=== PATIENT | male | born 2000 | race Caucasian/White ===

== ENCOUNTER 2018-11-18 09:45 | Emergency (ER) | payer SELFPAY ==
--- NOTE | 2018-11-18 10:38 | EDM.PDOC ---
ED HPI GENERAL MEDICAL PROBLEM - General Chief Complaint: Eye Problems Stated Complaint: EYE REDNESS Time Seen by Provider: 11/18/18 10:18 Source of Information: Reports: Patient, RN Notes Reviewed - History of Present Illness INITIAL COMMENTS - FREE TEXT/NARRATIVE: 18-year-old male comes in with left eye inflammation. This started 2 days ago and has continued. There has been some crusting and mattering of the eye, especially in the morning. His not aware of getting anything into the eye or any acute injury that he was aware of. He does wear contacts occasionally but has not been wearing contacts this past week. He works at a [employer] so would not be at high risk of injury or getting anything into the eye. - Related Data Allergies Allergy/AdvReac Type Severity Reaction Status Date / Time amoxicillin Allergy Rash Verified 11/18/18 09:58 Home Meds: Home Meds Ascorbic Acid [Vitamin C] 1 tab PO DAILY 11/18/18 [History] Cholecalciferol (Vitamin D3) [Vitamin D] 1 tab PO DAILY 11/18/18 [History] Folic Acid 1 tab PO DAILY 11/18/18 [History] Methotrexate 1 tab PO WEEKLY 11/18/18 [History] Remicade. 1 tab PO DAILY 11/18/18 [History] Past Medical History Gastrointestinal History: Reports: Other (See Below) Other Gastrointestinal History: Crohn's disease - Past Surgical History GI Surgical History: Reports: Colon, Colostomy Other GI Surgeries/Procedures: temporary colostomy, colostomy reversal Social & Family History - Tobacco Use Years of Tobacco use: 2 - Caffeine Use Caffeine Use: Reports: None - Recreational Drug Use Recreational Drug Use: No ED ROS GENERAL - Review of Systems Review Of Systems: See Below Constitutional: Denies: Fever, Chills HEENT: Reports: Eye Discharge (There has been some mild mattering and crusting, especially in the morning), Eye Pain Respiratory: Denies: Shortness of Breath, Cough Cardiovascular: Denies: Chest Pain GI/Abdominal: Denies: Abdominal Pain, Vomiting Skin: Denies: Rash Neurological: Denies: Headache ED EXAM GENERAL W FULL EYE - Physical Exam Exam: See Below General Appearance: Alert, Mild Distress Eye Exam: Bilateral Eye: Conjunctival Injection (Right eye is normal), PERRL Conjunctiva & Sclera: Bilateral: Injected Cornea Exam: Bilateral: Normal Appearance Nose: Normal Inspection Throat/Mouth: Normal Inspection Neck: Supple Respiratory/Chest: No Respiratory Distress Course - Vital Signs Last Recorded V/S: Last Vital Signs Temp 98.2 F 11/18/18 09:56 Pulse 68 11/18/18 09:56 Resp 16 11/18/18 09:56 BP 129/80 11/18/18 09:56 Pulse Ox 100 11/18/18 09:56 - Re-Assessments/Exams Free Text/Narrative Re-Assessment/Exam: 11/18/18 10:51 Slit-lamp exam was done I do not see any evidence for foreign body or abrasion. Of note at time of initial exam very small amount of exudate seen left lower lid margin. No evidence of traumatic injury. This does appear to be a conjunctival infection, will start him on erythromycin ointment 3 times daily. Departure - Departure Time of Disposition: 10:33 Disposition: Home, Self-Care 01 Condition: Fair Clinical Impression: Conjunctivitis Qualifiers: Conjunctivitis type: acute Acute conjunctivitis type: bacterial Laterality: left Qualified Code(s): H10.32 - Unspecified acute conjunctivitis, left eye - Discharge Information Instructions: Bacterial Conjunctivitis, [id number] Referrals: Sánchez Puentes MD [Primary Care Provider] - Forms: ED Department Discharge, ED Return to Work/School Form Additional Instructions: Warm compresses every 3 to 4 hours while awake today and tomorrow. Erythromycin antibiotic ointment 3 times daily L eye. Follow up with your regular eye doctor if not better by Tuesday, this may take 5 to 7 days to totally get back to normal. Tylenol or ibuprofen if needed for discomfort.
== END 2018-11-18 10:45 | disposition home or self-care (01) ==
LOC: JD.ED 09:45
DX: H10.32 Unspecified acute conjunctivitis, left eye (principal); Z88.1 Allergy status to other antibiotic agents; Z79.899 Other long term (current) drug therapy
CPT/HCPCS: 99282

== ENCOUNTER 2020-05-12 09:34 | Emergency (ER) | payer BC ==
--- NOTE | 2020-05-12 10:23 | EDM.PDOC ---
ED HPI GENERAL MEDICAL PROBLEM - General Chief Complaint: General Stated Complaint: NO TASTE/HAS CROHNS DISEASE Time Seen by Provider: 05/12/20 10:04 Source of Information: Reports: Patient History Limitations: Reports: No Limitations - History of Present Illness INITIAL COMMENTS - FREE TEXT/NARRATIVE: The patient presents with loss of taste and smell. He woke up with this. He has no other symptoms or signs such as fever, chills, cough, congestion, headache, shortness of breath, chest pain, abdominal pain, nausea, vomiting or diarrhea. His roommates girlfriend does not feel well and she is waiting for a COVID 19 test. The patient has a history of Crohn's disease and he is on methotrexate and remicade. Onset: Gradual Duration: Hour(s): Severity: Mild Improves with: Reports: None Worsens with: Reports: None Associated Symptoms: Reports: No Other Symptoms - Related Data Allergies Allergy/AdvReac Type Severity Reaction Status Date / Time amoxicillin Allergy Rash Verified 05/12/20 10:04 Home Meds: Home Meds Ascorbic Acid [Vitamin C] 1 tab PO DAILY 11/18/18 [History] Cholecalciferol (Vitamin D3) [Vitamin D] 1 tab PO DAILY 11/18/18 [History] Folic Acid 1 tab PO DAILY 11/18/18 [History] Methotrexate 1 tab PO WEEKLY 11/18/18 [History] Remicade. 1 tab PO ASDIRECTED 11/18/18 [History] Past Medical History Gastrointestinal History: Reports: Other (See Below) Other Gastrointestinal History: Crohn's disease - Past Surgical History GI Surgical History: Reports: Colon, Colostomy Other GI Surgeries/Procedures: temporary colostomy, colostomy reversal Social & Family History - Family History Family Medical History: Noncontributory - Tobacco Use Tobacco Use Status *Q: Light Tobacco User Years of Tobacco use: 3 Packs/Tins Daily: 0.1 - Caffeine Use Caffeine Use: Reports: Coffee, Energy Drinks - Recreational Drug Use Recreational Drug Use: No ED ROS GENERAL - Review of Systems Review Of Systems: See Below Constitutional: Reports: No Symptoms HEENT: Reports: Other (Loss of taste and smell) Respiratory: Reports: No Symptoms Cardiovascular: Reports: No Symptoms Endocrine: Reports: No Symptoms GI/Abdominal: Reports: No Symptoms : Reports: No Symptoms Musculoskeletal: Reports: No Symptoms ED EXAM, GENERAL - Physical Exam Exam: See Below Exam Limited By: No Limitations General Appearance: Alert, No Apparent Distress Ears: Normal External Exam Nose: Normal Inspection Head: Atraumatic, Normocephalic Neck: Normal Inspection Respiratory/Chest: No Respiratory Distress, Lungs Clear, Normal Breath Sounds Cardiovascular: Regular Rate, Rhythm, No Edema, No Murmur GI/Abdominal: Soft, Non-Tender, No Organomegaly, No Mass Back Exam: Normal Inspection Extremities: Normal Inspection Neurological: Alert, Oriented, No Motor/Sensory Deficits Course - Vital Signs Last Recorded V/S: Last Vital Signs Temp 97.8 F 05/12/20 10:00 Pulse 86 05/12/20 10:00 Resp 17 05/12/20 10:00 BP 155/91 H 05/12/20 10:00 Pulse Ox 100 05/12/20 10:00 - Orders/Labs/Meds Orders: Active Orders 24 hr Category Date Time Status CORONAVIRUS COVID-19 PCR [facility] Stat Lab 05/12/20 10:17 Ordered - Re-Assessments/Exams Free Text/Narrative Re-Assessment/Exam: 05/12/20 10:21 I have ordered a COVID 19 test. Departure - Departure Time of Disposition: 10:25 Disposition: Home, Self-Care 01 Condition: Good Clinical Impression: Loss of smell, Loss of taste - Discharge Information *PRESCRIPTION DRUG MONITORING PROGRAM REVIEWED*: Not Applicable *COPY OF PRESCRIPTION DRUG MONITORING REPORT IN PATIENT ZULEMA: Not Applicable Referrals: Sánchez Puentes MD [Primary Care Provider] - Forms: ED Department Discharge, ED Return to Work/School Form Additional Instructions: Take your medication as prescribed. Quarantine until you get the results. Please return if you are worse like any shortness of breath. Sepsis Event Note (ED) - Evaluation Sepsis Screening Result: No Definite Risk - Focused Exam Vital Signs: Vital Signs Temp Pulse Resp BP Pulse Ox 05/12/20 10:00 97.8 F 86 17 155/91 H 100 - My Orders Last 24 Hours: My Active Orders 05/12/20 10:17 CORONAVIRUS COVID-19 PCR [facility] Stat - Assessment/Plan Last 24 Hours: My Active Orders 05/12/20 10:17 CORONAVIRUS COVID-19 PCR [facility] Stat
== END 2020-05-12 10:45 | disposition home or self-care (01) ==
LOC: JD.ED 09:34
DX: R43.8 Other disturbances of smell and taste (principal); U07.1 COVID-19; F17.210 Nicotine dependence, cigarettes, uncomplicated; Z79.899 Other long term (current) drug therapy; Z88.1 Allergy status to other antibiotic agents
CPT/HCPCS: 99282; 99283; U0002

== ENCOUNTER 2020-08-08 19:40 | Emergency (ER) | payer BC ==
--- NOTE | 2020-08-08 20:19 | EDM.PDOC ---
ED HPI GENERAL MEDICAL PROBLEM - General Chief Complaint: Skin Complaint Stated Complaint: rash Time Seen by Provider: 08/08/20 20:03 Source of Information: Reports: Patient History Limitations: Reports: No Limitations - History of Present Illness INITIAL COMMENTS - FREE TEXT/NARRATIVE: This is a 20-year-old male. Onset yesterday with some rash on his lower legs and on his upper arms. It is itchy. He has been taking some allergy medication but is not helping. He comes to the clinic ER for evaluation. He denies any fever or chills he denies any other acute symptoms. He states it seems like it is spreading on his arms and getting worse. He has no history of allergies except to some amoxicillin. But he does not have any environmental or food allergies that he is aware of. Treatments KNOCKER OUT: Reports: Other Medication(s) Other Treatments KNOCKER OUT: generic allergy medication - Related Data Allergies Allergy/AdvReac Type Severity Reaction Status Date / Time amoxicillin Allergy Rash Verified 08/08/20 20:03 Home Meds: Home Meds Ascorbic Acid [Vitamin C] 1 tab PO DAILY 11/18/18 [History] Cholecalciferol (Vitamin D3) [Vitamin D] 1 tab PO DAILY 11/18/18 [History] Folic Acid 1 tab PO DAILY 11/18/18 [History] Methotrexate 1 tab PO WEEKLY 11/18/18 [History] Remicade. 1 tab PO ASDIRECTED 11/18/18 [History] Doxycycline [Vibra-Tabs] 100 mg PO BID #14 tab 08/08/20 [Rx] Past Medical History Gastrointestinal History: Reports: Other (See Below) Other Gastrointestinal History: Crohn's disease - Past Surgical History GI Surgical History: Reports: Colon, Colostomy Other GI Surgeries/Procedures: temporary colostomy, colostomy reversal Social & Family History - Family History Family Medical History: No Pertinent Family History - Tobacco Use Tobacco Use Status *Q: Current Every Day Tobacco User Years of Tobacco use: 1 Packs/Tins Daily: 1 - Caffeine Use Caffeine Use: Reports: None - Recreational Drug Use Recreational Drug Use: No ED ROS GENERAL - Review of Systems Review Of Systems: See Below Constitutional: Denies: Fever, Chills HEENT: Reports: No Symptoms Respiratory: Reports: No Symptoms Cardiovascular: Reports: No Symptoms Endocrine: Reports: No Symptoms GI/Abdominal: Reports: No Symptoms : Reports: No Symptoms Musculoskeletal: Reports: No Symptoms Skin: Reports: Pruritis, Rash Neurological: Reports: No Symptoms Psychiatric: Reports: No Symptoms Hematologic/Lymphatic: Reports: No Symptoms ED EXAM, SKIN/RASH Exam: See Below Exam Limited By: No Limitations General Appearance: Alert, WD/WN, No Apparent Distress Eye Exam: Bilateral Eye: Normal Inspection Ears: Normal External Exam Nose: Normal Inspection Throat/Mouth: Normal Inspection, Normal Lips, Normal Voice, No Airway Compromise Head: Normocephalic Neck: Supple Respiratory/Chest: No Respiratory Distress, Lungs Clear, Normal Breath Sounds Cardiovascular: Regular Rate, Rhythm, No Murmur Back Exam: Full Range of Motion Extremities: Other (He has a small patch of folliculitis on his distal lower leg and on his calf bilaterally, on his forearms he has a small patch but then there is a large patch that runs up the entire arm both the right and the left. Appear to have a rash on his chest or his abdomen or his back.) Neurological: Alert, Oriented Psychiatric: Normal Affect, Normal Mood Skin: Other (As above under extremities) Location, Skin: Upper Extremity, Right, Upper Extremity, Left, Lower Extremity, Right, Lower Extremity, Left Characteristics: Other (Folliculitis) Course - Vital Signs Last Recorded V/S: Last Vital Signs Temp 98.3 F 08/08/20 19:55 Pulse 72 08/08/20 19:55 Resp 20 08/08/20 19:55 BP 135/86 08/08/20 19:55 Pulse Ox 100 08/08/20 19:55 Departure - Departure Time of Disposition: 20:18 Disposition: Home, Self-Care 01 Condition: Good Clinical Impression: Folliculitis - Discharge Information *PRESCRIPTION DRUG MONITORING PROGRAM REVIEWED*: Not Applicable *COPY OF PRESCRIPTION DRUG MONITORING REPORT IN PATIENT ZULEMA: Not Applicable Prescriptions: Doxycycline [Vibra-Tabs] 100 mg PO BID #14 tab Instructions: Folliculitis Referrals: Sánchez Puentes MD [Primary Care Provider] - Additional Instructions: Take a daily shower and use the surgical scrub brush and the very flexible plastic fibers and with soap you gently scrub over these patches of folliculitis, start the antibiotic doxycycline as soon as you get them and take them twice a day for 7 days, remember this is contagious and you can spread it by scratching yourself or if someone touches it they can potentially get it also, get some Benadryl cream or hydrocortisone cream to help with the itching follow-up with your doctor this coming week for recheck, return to the ER if needed Sepsis Event Note (ED) - Evaluation Sepsis Screening Result: No Definite Risk - Focused Exam Vital Signs: Vital Signs Temp Pulse Resp BP Pulse Ox 08/08/20 19:55 98.3 F 72 20 135/86 100
== END 2020-08-08 20:39 | disposition home or self-care (01) ==
LOC: JD.ED 19:40
DX: L73.9 Follicular disorder, unspecified (principal); Z88.0 Allergy status to penicillin; Z79.899 Other long term (current) drug therapy; Z72.0 Tobacco use
CPT/HCPCS: 99282; 99283